=== PATIENT | male | born 1980 | race Caucasian/White ===

== ENCOUNTER 2023-09-16 23:12 | Emergency (ER) | payer OTHER ==
--- NOTE | 2023-09-17 00:19 | ED Physician Documentation ---
History of Present Illness - Stated complaint Stated Complaint: BACK PX - Chief complaint Chief Complaint: Back Pain - History obtained from History obtained from: Patient - Additonal information Additional information: 42yM with chronic nonproductive cough p/w stabbing sudden onset L midback pain while coughing today. denies fever, soa, cp. patient requesting pain meds and cough meds. PD PAST MEDICAL HISTORY - Past Medical History Past Medical History: Yes - Past Surgical History Past Surgical History: No - Present Medications Home Medications: Ambulatory Orders Medication Instructions Recorded Confirmed Codeine Phosphate/Guaifenesin 5 ml PO Q8HR PRN #30 ml 09/17/23 [Codeine-Guaifen 10-100 mg/5 ml] Ketorolac [Toradol] 10 mg PO Q6H PRN #20 tablet 09/17/23 - Allergies Allergies/Adverse Reactions: Allergies Allergy/AdvReac Type Severity Reaction Status Date / Time No Known Drug Allergies Allergy Verified 09/16/23 23:15 - Social History Does the pt smoke?: No Smoking Status: Never smoker Does the pt drink ETOH?: No Does the pt have substance abuse?: No - Immunizations Immunizations are current?: Yes - POLST Patient has POLST: No PD ED PE NORMAL - Vitals Vital signs reviewed: Yes - General General: Alert and oriented X 3, No acute distress, Well developed/nourished - HEENT HEENT: Atraumatic, PERRL, EOMI, Moist mucous membranes, Pharynx benign - Neck Neck: No bony TTP - Cardiac Cardiac: RRR - Respiratory Respiratory: No respiratory distress, Clear bilaterally - Back Back: No CVA TTP, No spinal TTP, Other (L midback discomfort to palpation in muscle distribution) Results - Vitals Vitals: Vital Signs - 24 hr 09/16/23 23:16 Temperature 36.8 C Heart Rate 88 Respiratory 16 Rate Blood Pressure 131/92 H O2 Saturation 98 Oxygen O2 Source Room air PD Medical Decision Making - ED course ED course: 42yM presents to the ED with chronic back pain and chronic cough. provided IM toradol with improvement. rx sent for toradol and advised patient to avoid other NSAIDS within 6 hours of this med. also sent prescription cough meds. return precautions given. plan to f/u pcm. Departure - Departure Disposition: 01 Home, Self Care Clinical Impression: Cough, Back pain Condition: Stable Instructions: ED Low Back Pain Injury Prescriptions: Codeine Phosphate/Guaifenesin [Codeine-Guaifen 10-100 mg/5 ml] 5 ml PO Q8HR PRN #30 ml PRN Reason: Cough Ketorolac [Toradol] 10 mg PO Q6H PRN #20 tablet PRN Reason: Pain Comments: You were seen in the emergency department for back spasm after coughing. Prescription sent electronically To [facility] in [place]. Please follow-up with your primary care provider and return to the emergency department if you have any new or worsening symptoms or other concerns.
[2023-09-17] MEDS: KETOROLAC 30 MG/ML VIAL IM STA (00:27)
[2023-09-17 00:35] VITALS: BP 128/88; O2SAT 97
== END 2023-09-17 00:32 | disposition home or self-care (01) ==
LOC: ED 23:12
DX: M54.50 Low back pain, unspecified (principal); R05.9 Cough, unspecified
CPT/HCPCS: 96374; 99284